=== PATIENT | female | born 1975 | race Caucasian/White ===

== ENCOUNTER 2018-08-08 01:43 | Emergency (ER) | payer OTHER ==
[~2018-08-08] VITALS: Ht 170.2 cm; Wt 90.7 kg
[2018-08-08 02:15] VITALS: BP 136/77
[2018-08-08] MEDS ORDERED: cefTRIAXone SOD 1,000 MG VL IM ONE (04:45)
[2018-08-08] MEDS ORDERED: HYDROcodone-ACET 5/325MG TAB PO ONE (04:45)
== END 2018-08-08 05:23 | disposition home or self-care (01) ==
LOC: ER 01:43
DX: T63.301A Toxic effect of unspecified spider venom, accidental (unintentional), initial encounter (principal); Y92.89 Other specified places as the place of occurrence of the external cause
CPT/HCPCS: 96372; 99283; J0696

== ENCOUNTER 2024-01-10 11:16 | Emergency (ER) | payer OTHER ==
[~2024-01-10] VITALS: Ht 170.2 cm; Wt 79.5 kg
[2024-01-10 12:00] VITALS: PULSE 110; RESP 19; O2SAT 93
[2024-01-10 12:57] LABS: Basophils # (auto) 0 10 ^3/uL (0-0.2); Basophils % (auto) 0.6 % (0.0-2.0); Eosinophils # (auto) 0.3 10 ^3/uL (0-0.8); Monocytes # (auto) 0.5 10 ^3/uL (0-1.3); Neutrophils % (auto) 66.6 % (37.0-80.0)
[2024-01-10 12:58] LABS: Eosinophils % (auto) 4.2 % (0.0-7.0); Hematocrit 34.9 % (36.0-46.0); Lymphocytes # (auto) 1.3 10 ^3/uL (0.4-5.4); Lymphocytes % (auto) 20.5 % (10.0-50.0); Mean Corpuscular Hemoglobin 25.8 pg (28.0-32.0); Mean Corpuscular Hgb Conc. 31.4 g/dL (32.0-36.0); Mean Corpuscular Volume 82.1 fL (80.0-100.0); Monocytes % (auto) 8.1 % (0.0-12.0); Neutrophils # (auto) 4.1 10 ^3/uL (1.6-8.6); Nucleated Red Blood Cells % 0.1 %; Red Blood Cells 4.24 10^6/uL (4.0-5.20); Red Cell Distribution Width 18.1 % (11.8-14.3); White Blood Cell 6.2 10^3/uL (4.4-10.8)
[2024-01-10 13:09] LABS: Albumin 3.3 g/dL (3.2-4.8); Alkaline Phosphatase 54 U/L (46-116); Anion Gap 3 (5-15); Aspartate Aminotransferase 13 U/L (13-40); BUN/Creatinine Ratio 9.8 (10.0-20.0); Blood Urea Nitrogen 8 mg/dL (9-23); Calcium 8.9 mg/dL (8.7-10.4); Carbon Dioxide 30 mmol/L (20-30); Chloride 108 mmol/L (98-107); Glucose 97 mg/dL (74-106); Lipase 18 U/L (12-53); Magnesium 1.6 mg/dL (1.6-2.6); Potassium 3.7 mmol/L (3.5-5.1); Sodium 141 mmol/L (136-145)
[2024-01-10 13:10] LABS: Alanine Aminotransferase < 9 U/L (7-40); Bilirubin, Total 0.2 mg/dL (0.2-1.0); Total Protein 6.1 g/dL (5.7-8.2)
[2024-01-10] MEDS: PIPERACILLIN-TAZO 4.5GM 100 ML IV ONE (14:31)
[2024-01-10] MEDS: SODIUM CHLORIDE 0.9% 500 ML IVB ONE (14:32)
[2024-01-10] MEDS: SODIUM CHLORIDE 0.9% 1,000 ML IV ONE (16:00)
[2024-01-10] MEDS ORDERED: CEFD300C2 PO (16:28)
[2024-01-10] MEDS ORDERED: TRAM50TA2 PO (16:28)
[2024-01-10 17:45] VITALS: BP 115/68; PULSE 104; RESP 12; O2SAT 96
== END 2024-01-10 18:30 | disposition home or self-care (01) ==
LOC: EDBD 11:16 → ER 11:16
DX: I87.2 Venous insufficiency (chronic) (peripheral) (principal); I10 Essential (primary) hypertension; J45.909 Unspecified asthma, uncomplicated; M19.90 Unspecified osteoarthritis, unspecified site; Z98.890 Other specified postprocedural states
CPT/HCPCS: 36415; 71045; 80053; 83690; 83735; 85025; 87040; 87077; 87186; 87205; 96361; 96365; 99285; J2543; J7030